=== PATIENT | female | born 1970 | race Caucasian/White ===

== ENCOUNTER 2018-04-30 20:39 | Inpatient (IN) ==
--- NOTE | 2018-04-30 22:45 | Internal Med History&Physical ---
<Tree Cortez A - Last Filed: 05/01/18 01:20> Date of Encounter: 05/01/18 Time of Encounter: 22:44 Internal Medicine - H&P: HPI Chief complaint: PNA Admitted From: Intrahospital Transfer ([facility]) History of present illness: Ms. Vasquez is a 47 year old female with past medical hx of COPD, seizures, liver disease, bipolar, and schizophrenia. She presented to [facility] ED earlier today for shortness of breath and confusion. Pt's reported to ED provider that the pt has been lethargic staying in bed most of the day. In the afternoon he found her to be confused and asking her [id number] if she wanted to move the kitchen sink. There was nausea with 1 episode of unwitnessed emesis. At [facility] ED she was placed on BiPAP and subsequently transferred to [facility] for further pulmonary care. CXR in the ED revealed bilateral airspace opacification likely pneumonia. ED labs revealed an elevated WBC at 21.2 with le ft shift. Lactic acid was normal at 0.9 and pt was afebrile. She did receive a dose of Levaquin at [facility]. Upon arrival at [facility], the pt's mentation had improved significantly. She is A&Ox3. Does not recall the events of today, with the first thing she remembers is being wheeled out of the ambulance on arrival at [facility]. She does endorse that the past 2-3 days she has been experiencing fever and chills. Also states she has had an increased dyspnea, increased congested cough with increased sputum production, headaches, and fatigue. She does complain of some vague abdominal pain, but states it is probably from her baseline constipation. Denies any chest pain, nausea, hematemesis, hematochezia, melena, numbness, or tingling. She does state she has been drinking cranberry juice for the past couple of days for hematuria, dysuria, and increased urinary frequency. Past Med Surg Social Fam HX - Past Medical History Medical history: asthma, COPD, liver disease, seizures, other Additional medical history: OPIOD ADDICTION Psychiatric history: anxiety, bipolar, depression, schizophrenia - Past Surgical History Surgical History: cholecystectomy, hysterectomy, orthopedic, other Additional surgical history: Cortisone shots to bilat knees - Social History Smoking Status: Current every day smoker Smokeless Tobacco Status: Yes Alcohol use: none Drug use: marijuana - Family History Mother Living Status: Still Living Hx Family Cardiac Disorders: Yes (Hypertension) Father Living Status: Still Living Brother Adopted: No Family Member Ethnicity: Non- Living Status: Still Living Hx Family Cardiac Disorders: Yes (Hypertension) Hx Family Respiratory Disorders: No Hx Family Cancer: No Hx Family GI Disorders: No Hx Family Endocrine Disorder: No Hx Family Neuromuscular Disorders: No Hx Family Neurologic Disorders: No Hx Family HEENT Disorders: No Hx Family Autoimmune Disorders: No Internal Medicine - H&P: Meds Escitalopram [Lexapro] 20 mg PO QPM 02/19/15 [History] Ziprasidone [Geodon] 20 mg PO BID 07/03/15 [History] hydrOXYzine HCl [Hydroxyzine HCl] 50 mg PO TID 08/13/15 [History] Buprenorphine HCl/Naloxone HCl [Suboxone 8 mg-2 mg Sl Film] 1 each SL DAILY 01/12/16 [History] Docusate Sodium [Dok] 100 mg PO BID 01/12/16 [History] Doxepin HCl 200 mg PO HS 01/12/16 [History] Sennosides [Senna] 8.6 mg PO HS 01/12/16 [History] Quetiapine Fumarate [Seroquel] 100 mg PO BID #60 tablet 01/14/16 [Rx] Furosemide [Lasix] 20 mg PO DAILY 08/17/16 [History] Naproxen [Naprosyn] 500 mg PO BID PRN #15 tablet 08/18/16 [Rx] Allergy/AdvReac Type Severity Reaction Status Date / Time aspirin Allergy Anaphylaxis Verified 04/30/18 17:50 codeine Allergy Anaphylaxis Verified 04/30/18 17:50 Sulfa (Sulfonamide Allergy See Verified 04/30/18 17:50 Antibiotics) Comments All Systems PM: A 10-system review of systems was performed and is negative for pertinent findings except as documented above in the HPI. - Constitutional Constitutional: chills, fatigue, fever(s), lethargy, no excessive sweating, no night sweats - EENT Eyes: no blurry vision, no change in vision, no photophobia Ears: no decreased hearing, no tinnitus Nose, mouth and throat: no nasal congestion, no sinus pain, no sinus pressure - Cardiovascular Cardiovascular ROS IM: dyspnea, no chest pain, no diaphoresis, no edema, no ligh theadedness, no palpitations - Respiratory Respiratory: cough, dyspnea, chest congestion, excessive phlegm production, change in phlegm color, no hemoptysis, no wheezing - Gastrointestinal Gastrointestinal: abdominal pain, constipation, no change in bowel habits, no change in stool character, no diarrhea, no hematemesis, no hematochezia, no melena, no nausea, no vomiting - Genitourinary Genitourinary: dysuria, hematuria, urinary frequency, urinary incontinence, urinary urgency, no urinary hesitancy - Musculoskeletal Musculoskeletal ROS IM: no arthralgias, no myalgias, no numbness, no tingling - Integumentary Integumentary IM: no new lesions, no rash, no unusual bruising, no jaundice - Neurological Neurological ROS: headache(s), no confusion, no numbness, no tingling, no weakness - Hematologic/Lymphatic Hematologic/Lymphatic: no easy bleeding, no easy bruising - Constitutional General appearance: Present: mild distress, A&O X 3, pleasant, answers questions appropriately Exam: General: well developed and well nourished female in mild respiratory distress Head: normocephalic and atraumatic Eyes: PERRL, EOMI, sclera anicteric, conjunctiva pink Neck: supple, trachea midline Lungs: Grossly diminished breath sounds with rales noted on the right side. Fine wheezes at bilateral apices. No rhonchi. Heart: RRR +s1 +S2 No murmurs, clicks, or rubs GI: abdomen distended, tense to palpation, non-tender. normoactive bowel sounds Extremities: warm, peripheral pulses palpable and symmetrical. no edema, cyanosis, or calf tenderness Neuro: A&Ox3. no focal deficits. cooperative with exam Skin: warm, dry, intact - Assessment and plan (1) Acute and chronic respiratory failure with hypoxia Current Visit: Yes Status: Acute Assessment and plan: 2/2 COPD exacerbation from bilateral pneumonia Complained of fever, chills Improved with BiPAP use Afebrile at this time Blood cultures x2 obtained at [facility], will follow for results Levaquin for abx at this time, will obtain sputum cultures and can broaden coverage if pt does not continue to improve Obtain legionella and s pneumo urine antigens Transition to supplemental O2 from BiPAP Scheduled duonebs Continue home inhalers Will hold off on steroids at this time unless pt does not continue to improve Continue to monitor May consider CT chest if pt does not continue to improve (2) Bilateral pneumonia Current Visit: Yes Status: Inactive Assessment and plan: Plan as above Qualifiers: Pneumonia type: due to unspecified organism Lung location: unspecified part of lung Qualified Code(s): J18.9 - Pneumonia, unspecified organism (3) COPD with acute exacerbation Current Visit: Yes Status: Inactive Assessment and plan: Plan as above (4) Altered mental status Current Visit: Yes Status: Resolved Assessment and plan: Pt was somnolent at home and on arrival at [facility] This improved with BiPAP use Likely infectious vs hepatic encephalopathy vs hypoxia Resolved at this time Qualifiers: Altered mental status type: somnolence Qualified Code(s): R40.0 - Somnolence (5) UTI (urinary tract infection) Current Visit: Yes Status: Acute Assessment and plan: symptomatic with hematuria, dysuria, and increased frequency UA from [facility] was positive for blood, small leukocyte esterase, and some RBCs and WBCs Covered with Levaquin as above Qualifiers: Urinary tract infection type: site unspecified Hematuria presence: without hematuria Qualified Code(s): N39.0 - Urinary tract infection, site not specified (6) Bipolar disorder Current Visit: Yes Status: Chronic Assessment and plan: Continue home meds Qualifiers: Active/Remission status: remission status unspecified Qualified Code(s): F31.9 - Bipolar disorder, unspecified (7) Tobacco abuse Current Visit: Yes Status: Chronic Assessment and plan: Smokes 3ppd Spent >10 minutes discussing the importance of smoking cessation and treatment alternatives Pt not interested in quitting at this time, requesting nicotine patch during admission (8) DVT prophylaxis Current Visit: Yes Status: Acute Assessment and plan: SQ Heparin (9) Seizure disorder Current Visit: Yes Status: Acute Assessment and plan: Pt reportedly on Keppra Can verify and resume home medications in the morning - Time Spent With Patient Total time spent is greater than 50% in coordination of care (as documented) at patient's floor/unit and/or counseling patient: <Jasmin Perry - Last Filed: 05/01/18 07:01> Date of Encounter: 12/02/18 Internal Medicine - H&P: HPI History of present illness: Ms. Vasquez is a 47 year old female All Systems PM: A 10-system review of systems was performed and is negative for pertinent findings except as documented above in the HPI. - Constitutional Vitals: Temp Pulse Resp BP Pulse Ox 97.5 F L 93 12 97/65 98 05/01/18 03:50 05/01/18 05:00 05/01/18 05:00 05/01/18 05:00 05/01/18 05:00 Internal Med - H&P Results - Labs CBC & Chem 7: 05/01/18 03:42 05/01/18 03:42 Labs: Short CBC 05/01/18 Range/Units 03:42 WBC 15.4 H (4.3-11.1) K/mcL Hgb 12.9 (11.5-15.4) g/dL Hct 38.7 (35.3-44.9) % Plt Count 140 (140-400) K/mcL Neutrophils # 14.0 H (1.6-8.9) K/mcL BMP 05/01/18 03:42 Sodium 136 Potassium 4.1 Chloride 110 H Carbon Dioxide 21 L BUN 14 Creatinine 0.73 Glucose 173 H Calcium 8.9 - Assessment and plan (1) Tobacco abuse Current Visit: Yes Status: Chronic (2) Bipolar disorder Current Visit: Yes Status: Chronic Qualifiers: Active/Remission status: remission status unspecified Qualified Code(s): F31.9 - Bipolar disorder, unspecified (3) DVT prophylaxis Current Visit: Yes Status: Acute (4) COPD with acute exacerbation Current Visit: Yes Status: Inactive (5) Bilateral pneumonia Current Visit: Yes Status: Inactive Qualifiers: Pneumonia type: due to unspecified organism Lung location: unspecified part of lung Qualified Code(s): J18.9 - Pneumonia, unspecified organism (6) UTI (urinary tract infection) Current Visit: Yes Status: Acute Qualifiers: Urinary tract infection type: site unspecified Hematuria presence: without hematuria Qualified Code(s): N39.0 - Urinary tract infection, site not specified (7) Acute and chronic respiratory failure with hypoxia Current Visit: Yes Status: Acute (8) Altered mental status Current Visit: Yes Status: Resolved Qualifiers: Altered mental status type: somnolence Qualified Code(s): R40.0 - Somnolence (9) Seizure disorder Current Visit: Yes Status: Acute - Time Spent With Patient Total time spent is greater than 50% in coordination of care (as documented) at patient's floor/unit and/or counseling patient: - Attending Attestation I performed a history and physical examination of the patient and discussed her management with the resident. I reviewed the resident's note and agree with the documented findings and plan of care.
[2018-04-30] MEDS ORDERED: Naloxone 0.4 MG/ML INJ IVP PRN (23:03)
[2018-04-30] MEDS ORDERED: Levofloxacin 750 MG/150 ML 750 MG/150 ML BAG IVPB SCH (23:15)
[2018-04-30] MEDS ORDERED: Nicotine 21 MG PATCH.TD24 TD SCH (23:45)
[2018-05-01] MEDS: Ziprasidone 20 MG CAPSULE PO SCH ×2 (00:26→09:10)
[2018-05-01] MEDS: Ipratropium/Albuterol Neb 3 ML IH SCH ×2 (03:59→09:57)
[2018-05-01 04:10] LABS: Basophils % 0.1 %; Eosinophils % 0.1 %; Hematocrit 38.7 % (35.3-44.9); Hemoglobin 12.9 g/dL (11.5-15.4); Immature Granulocytes % 0.5 % (0-4); Lymphocytes # 1.1 K/mcL (0.6-4.6); Lymphocytes % 7.4 %; Mean Corpuscular HGB Conc 33.3 g/dL (31.6-35.5); Mean Corpuscular Hemoglobin 30.9 pg (28.0-33.3); Mean Corpuscular Volume 92.6 fL (83.0-100.0); Mean Platelet Volume 10.1 fL (9.4-12.4); Monocytes # 0.2 K/mcL (0.0-1.3); Monocytes % 1.2 %; Platelet Count 140 K/mcL (140-400); Red Blood Count 4.18 M/mcL (3.82-4.97); Red Cell Distribution Width 12.5 % (11.5-14.5); Segmented Neutrophils % 90.7 %
[2018-05-01 04:30] LABS: BUN/Creatinine Ratio 19 (6-26); Blood Urea Nitrogen 14 mg/dL (6-20); Calcium 8.9 mg/dL (8.6-10.3); Carbon Dioxide 21 mEq/L (23-29); Chloride 110 mEq/L (98-107); Glucose 173 mg/dL (70-105); Osmolality,Calculated 287 (280-300); Phosphorous 2.2 mg/dL (2.7-4.5); Potassium 4.1 mEq/L (3.5-5.1); Sodium 136 mEq/L (136-145); eGFR For Non-African Americans > 60 (> 60)
[2018-05-01] MEDS ORDERED: *HR* Heparin 5,000 UNIT/ML VIAL SQ SCH (06:00)
[2018-05-01] MEDS: hydrOXYzine pamoate 25 MG CAPSULE PO SCH ×2 (09:10→14:03)
[2018-05-01] MEDS ORDERED: *HR* Buprenorphine HCl 2 MG SUBLINGUAL TABLET SL SCH (12:00)
[2018-05-01] MEDS ORDERED: levETIRAcetam 250 MG TABLET PO SCH (12:10)
[2018-05-01 12:11] VITALS: BP 107/61
--- NOTE | 2018-05-01 15:23 | Discharge Summary ---
- NOTES TO OUTPATIENT PROVIDER Notes to Outpatient Provider: PCP in one week Orders not resulted at time of discharge: CBC with diff 05/04/2018 out pt. Send results to PCP. DX: PNA and leukocytosis Date of Encounter: 05/01/18 Time of Encounter: 15:20 - Discharge Diagnosis (1) Acute and chronic respiratory failure with hypoxia Priority: Primary Status: Acute Assessment and Plan: Resolved. secondary to COPD exacerbation from bilateral pneumonia Complained of fever, chills Improved with BiPAP use Afebrile at this time Blood cultures x2 obtained at [facility], will follow for results Levaquin for abx and has shjown improvement, Obtained legionella and s pneumo urine antigens both where neg Weaned off BiPAP and tolerating room air. Ambulatory pulse ox at discharge on room air with activity was 95-96% on room. Will discharge on scheduled duonebs Q6 hr and steroid taper. Continue home inhalers. Reasonable to have pt stay one more night, but pt requesting to go home and states she will be complaint with antibiotic and Duoneb treatment has prescribed. Gustavofrienjovanny at bedside during my encounter. Explained to pt that if she developed SOB/difficulty breath/ fevers or worsening symptoms, she should present back to ED for re-evaluation and she has agreed to comply. Follow up out pt with PCP for possible repeat chest x ray to assess for complete resolution of PNA. Also CBC out pt 05/04/2018 to reassess WBC. (2) Bilateral pneumonia Priority: Primary Status: Inactive Assessment and Plan: Pt is on Levaquin and will DC her on it for few more days. She was unable to give sputum sample. Legionella and strep work up negative Qualifiers: Pneumonia type: due to unspecified organism Lung location: unspecified part of lung Qualified Code(s): J18.9 - Pneumonia, unspecified organism (3) COPD with acute exacerbation Priority: Primary Status: Inactive Assessment and Plan: Resolving, Pt admits to medical non-compliance on night time oxygen. She continues to smoke and reports she has not filled her neb/inhaler prescription in months. According to pharmacy here, pt has not filled neb order in about a year. Meds probably and unable to tell if neb machine has been properly cleaned of taken care of. Will prescribe NEB machine and Duoneb Q 6 hours schedule, prednisone taper, and continue with prn inh. Once again she has been strongly advised on smoking cessation. Ambulatory pulse ox prior to DC was 96% on room air with activity. Follow up out pt with [facility] for possible PFT with [facility] once infection completely resolves. (4) Bipolar disorder Priority: Secondary Status: Chronic Assessment and Plan: Continue home meds Qualifiers: Active/Remission status: remission status unspecified Qualified Code(s): F31.9 - Bipolar disorder, unspecified (5) UTI (urinary tract infection) Priority: Primary Status: Acute Assessment and Plan: symptomatic with hematuria, dysuria, and increased frequency UA from [place] was positive for blood, small leukocyte esterase, and some RBCs and WBCs Urine culture results pending. Covered with Levaquin as above and will DC on for few more days to complete course. Qualifiers: Urinary tract infection type: site unspecified Hematuria presence: without hematuria Qualified Code(s): N39.0 - Urinary tract infection, site not specified (6) Altered mental status Priority: Primary Status: Resolved Assessment and Plan: Pt was somnolent at home and on arrival at [facility] This improved with BiPAP use Multifactorial, metabolic encephalopathy due to infection and or hypoxia Resolved at this time. Pt is alert and oriented times 3, NAD Qualifiers: Altered mental status type: somnolence Qualified Code(s): R40.0 - Somnolence (7) Seizure disorder Priority: Secondary Status: Acute Assessment and Plan: On Keppra (8) Tobacco abuse Priority: Secondary Status: Chronic Assessment and Plan: Smokes 3ppd Spent >10 minutes discussing the importance of smoking cessation and treatment alternatives Pt not interested in quitting at this time, requesting nicotine patch during admission. Cessation strongly advised Hospital course: History of present illness: Dr. Mcnair Ms. Vasquez is a 47 year old female with past medical hx of COPD, seizures, liver disease, bipolar, and schizophrenia. She presented to [facility] ED earlier today for shortness of breath and confusion. Pt's reported to ED provider that the pt has been lethargic staying in bed most of the day. In the afternoon he found her to be confused and asking her [id number] if she wanted to move the kitchen sink. There was nausea with 1 episode of unwitnessed emesis. At [facility] ED she was placed on BiPAP and subsequently transferred to [facility] for further pulmonary care. CXR in the ED revealed bilateral airspace opacification likely pneumonia. ED labs revealed an elevated WBC at 21.2 with left shift. Lactic acid was normal at 0.9 and pt was afebrile. She did receive a dose of Levaquin at [facility]. Upon arrival at [facility], the pt's mentation had improved significantly. She is A&Ox3. Does not recall the events of today, with the first thing she remembers is being wheeled out of the ambulance on arrival at [facility]. She does endorse that the past 2-3 days she has been experiencing fever and chills. Also states she has had an increased dyspnea, increased congested cough with increased sputum production, headaches, and fatigue. She does complain of some vague abdominal pain, but states it is probably from her baseline constipation. Denies any chest pain, nausea, hematemesis, hematochezia, melena, numbness, or tingling. She does state she has been drinking cranberry juice for the past couple of days for hematuria, dysuria, and increased urinary frequency. Dr. Martinez See assessment and plan for hospital course. Discharge discussed with: patient Time spent discussing smoking cessation with patient: 3 to 10 minutes - Time Spent with Patient Total time spent providing and/or coordinating discharge services: Greater than 30 minutes - Discharge Medications Prescriptions: Ipratropium/Albuterol Neb [Duoneb] 3 ml IH [id number] 30 Days #30 inhsol methylPREDNISolone [Medrol] 4 mg PO BIDWM 6 Days #21 tablet Home Medications: hydrOXYzine HCl [Hydroxyzine HCl] 50 mg PO TID 08/13/15 [History] Buprenorphine HCl/Naloxone HCl [Suboxone 8 mg-2 mg Sl Film] 0.5 each SL TID 01/12/16 [History] Doxepin HCl 100 mg PO BID 01/12/16 [History] Albuterol Sulfate [Albuterol Inhaler] 2 puff AER QID PRN 05/01/18 [History] Gabapentin [Neurontin] 800 mg PO QID 05/01/18 [History] Ipratropium/Albuterol Neb [Duoneb] 3 ml IH [id number] 30 Days #30 inhsol 05/01/18 [Rx] LevETIRAcetam [Keppra] 1,000 mg PO BID 05/01/18 [History] Pantoprazole Sodium [Protonix] 40 mg PO DAILY 05/01/18 [History] Quetiapine Fumarate [SEROquel] 100 mg PO HS 05/01/18 [History] methylPREDNISolone [Medrol] 4 mg PO BIDWM 6 Days #21 tablet 05/01/18 [Rx] Allergies/Adverse Reactions: Allergy/AdvReac Type Severity Reaction Status Date / Time aspirin Allergy Anaphylaxis Verified 04/30/18 17:50 codeine Allergy Anaphylaxis Verified 04/30/18 17:50 Sulfa (Sulfonamide Allergy See Verified 04/30/18 17:50 Antibiotics) Comments Date of admission: 04/30/18 22:14 Primary care physician: PCP NONE Discharging clinician: Linda Martinez Anticipated date of discharge: 05/01/18 - Constitutional Vitals: Temp Pulse Resp BP Pulse Ox 97.9 F 98 18 107/61 93 05/01/18 11:40 05/01/18 12:00 05/01/18 12:00 05/01/18 12:00 05/01/18 12:00 General appearance: Present: mild distress, A&O X 3, pleasant, obese, answers questions appropriately Exam: . - Head Head exam: Present: atraumatic, normocephalic - Eye Eye exam: Present: PERRL, conjuntiva pink, sclera anicteric Pupils: Present: PERRL - Neck Neck exam general surgery: Present: supple, trachea midline. Absent: lymphadenopathy - Respiratory Respiratory exam: Present: rhonchi. Absent: accessory muscle use, rales, wheezes Additional comments: bilateral rhonchi - Cardiovascular Cardiovascular exam: Present: RRR, +S1, +S2. Absent: diastolic murmur, gallop, rubs, systolic murmur - GI/Abdominal GI/Abdominal exam: Present: normal bowel sounds, soft, no peritoneal signs. Absent: distended, tenderness - Extremities Exam Extremities exam: Present: warm, radial pulses palpable and symmetrical. Absent: calf tenderness, cyanotic, pedal edema - Neurological Exam Neurological exam: Present: CN II-XII intact, oriented X3, no focal deficits. Absent: pronater drift, facial droop, speech deficit - Skin Skin exam: Present: dry, intact - Patient Status Disposition: Home, Self-Care Condition: Fair Overall status at discharge: patient is progressing back to baseline - Discharge Instructions Follow Up With: NONE,PCP [Primary Care Provider] - - Diet and Activity Activity: increase activity as tolerated Diet: advance to your usual diet
[2018-05-01] MEDS ORDERED: Sennosides 8.6 MG TABLET PO SCH (21:00)
== END 2018-05-01 16:25 | disposition home or self-care (01) | DRG 189 ==
LOC: ICNU 22:14
PROVIDERS: ADMIT Family Medicine; ATTEND Family Medicine